=== PATIENT | male | born 1980 | race Caucasian/White ===

== ENCOUNTER 2022-08-30 10:41 | Emergency (ER) | payer BC, SELFPAY ==
[2022-08-30 11:45] VITALS: BP 146/98; PULSE 87; RESP 16; TEMP 36.9; O2SAT 100
--- NOTE | 2022-08-30 12:01 | ED.BACK ---
HPI - Back Pain/Injury General Chief Complaint: Back Pain/Injury Stated Complaint: lower back pain Time Seen by Provider: 08/30/22 12:00 Source: patient Mode of arrival: ambulatory Limitations: no limitations History of Present Illness HPI Narrative: Deniz is a 42-year-old male patient presenting to the clinic today with complaints of low back pain after playing golf yesterday. He reports he was swinging the golf club and had a sharp pain in his lower back after the swelling occurred and this dropped him to the ground. He reports he is having pain with walking, sitting, and standing. He denies any radiation of pain down his legs. He denies any saddle anesthesia or loss of bowel or bladder. Related Data Home Medications Medication Instructions Recorded Confirmed losartan 25 mg tablet 25 mg DAILY 08/30/22 08/30/22 sumatriptan succinate 100 mg tablet 100 mg PO PRN PRN Pain 08/30/22 08/30/22 Allergies Allergy/AdvReac Type Severity Reaction Status Date / Time Sulfa (Sulfonamide Allergy Unknown Unknown Verified 08/30/22 11:49 Antibiotics) Review of Systems Review of Systems: Pertinent positives per HPI. Patient denies any fever, chills, rash, headache, visual changes, dizziness, cough, runny nose, sore throat, shortness of breath, chest pain, palpitations, nausea, vomiting, diarrhea, constipation, abdominal pain, or any urinary issues. PMFSH Comments At the time of my signature, I reviewed and agree with the nursing past medical, surgical, social, and family history. There is no relevant family history pertinent to the patient complaint. Exam Narrative: General: Well-developed, well nourished, in no apparent distress Head: Normocephalic, atraumatic. Cardio: Regular rate and rhythm, s1 and s2 normal, no murmur appreciated. Resp: Clear to auscultation bilaterally, no rhonchi, rales, wheezing or rubs. Musculoskeletal: No deformity, tender to palpation over L1-L5, tender to palpation over the paraspinous musculature, grossly normal range of motion, bilateral lower muscle strength strong and equal, strong plantar and dorsal flexion against resistance bilaterally, bilateral patellar reflexes 2/4, peripheral pulse strong, no edema, no cyanosis, caution gait and station Course Course Emergency Course: Portions of this record may have been created with voice recognition software. Level of Care: Express Care Visit Vital Signs Vital signs: Vital Signs Temperature 36.9 C 08/30/22 11:45 Pulse Rate 87 08/30/22 11:45 Respiratory Rate 16 08/30/22 11:45 Blood Pressure 146/98 H 08/30/22 11:45 Pulse Oximetry 100 08/30/22 11:45 Oxygen Delivery Room Air 08/30/22 11:45 Temperature 36.9 C 08/30/22 11:45 Pulse Rate 87 08/30/22 11:45 Respiratory Rate 16 08/30/22 11:45 Blood Pressure 146/98 H 08/30/22 11:45 Pulse Oximetry 100 08/30/22 11:45 Oxygen Delivery Room Air 08/30/22 11:45 Vital signs reviewed MDM - Back Pain/Injury MDM Narrative Medical decision making narrative: At the time of the patient is resting on the exam table. Rates his pain 8/10 currently. Toradol 60 mg IM was given in the clinic for pain. I suspect patient has low back strain. Supportive measures were discussed with the patient he voiced understanding of discharge instructions agrees to treatment plan. Prescription for naproxen and Flexeril was sent to the pharmacy and sedated of precautions were reviewed with the patient regarding the Flexeril. Differential Diagnosis Differential diagnosis: Likely lumbar radiculopathy, sciatica and strain of lumbar region Discharge Plan Discharge Clinical Impression: Strain of lumbar region Patient Disposition: Home, Self-Care Condition: Stable Instructions: Antibiotic Form, Low Back Strain (ED), Lower Back Exercises (ED) Additional Instructions: Toradol 60 mg IM given in the clinic today for pain Take any prescription medication only as prescribed.-naproxen an
[2022-08-30] MEDS: KETOROLAC (*BKC) 60 MG/2 ML VIAL IM (12:12)
== END 2022-08-30 12:31 | disposition home or self-care (01) ==
PROVIDERS: Emergency Provider Nurse Practitioner Family; PCP Family Medicine
DX: S39.012A Strain of muscle, fascia and tendon of lower back, initial encounter (principal); X50.9XXA Other and unspecified overexertion or strenuous movements or postures, initial encounter; Y93.53 Activity, golf; I10 Essential (primary) hypertension
CPT/HCPCS: 96372; 99213; G0463; J1885